=== PATIENT | female | born 1995 | race Caucasian/White ===

== ENCOUNTER → 2021-09-03 08:16 | Outpatient (CLI) | payer BC, SELFPAY ==
--- NOTE | ~2021-09-03 | US_ITS ---
US breast LT complete INDICATION: Left breast lump TECHNIQUE: Dedicated left complete breast ultrasound COMPARISON: No prior studies for comparison. FINDINGS: The left breast is composed of normal heterogeneous echotexture without focal solid or cyst ic mass. IMPRESSION: 1: Normal left breast ultrasound. BI-RADS CATEGORY 1 - NEGATIVE Reviewed, dictated and finalized at location A.
== END ==
DX: N63.42 Unspecified lump in left breast, subareolar (principal)
CPT/HCPCS: 76641